=== PATIENT | male | born 1945 | race Caucasian/White ===

== ENCOUNTER 2023-07-10 08:00 | Outpatient (CLI) | payer MEDICARE ==
--- NOTE | 2023-07-10 12:29 | XRAY Report ---
PROCEDURE: Chest 2V INDICATIONS: VIRAL SYMPTOM TECHNIQUE: 2 views of the chest were acquired. COMPARISON: None. FINDINGS: Surgical changes and devices: None. Lungs and pleura: No pleural effusions or pneumothorax. Lungs are clear. Mediastinum: Mediastinal contours appear normal. Heart size is normal. Bones and chest wall: No suspicious bony lesions. Overlying soft tissues appear unremarkable. IMPRESSION: No acute cardiopulmonary process. Reviewed by: Flako Yepez MD on 07/10/2023 12:27 PM [facility] Approved by: Flako Yepez MD on 07/10/2023 12:27 PM [facility] Station ID: [id number]
== END 2023-07-10 23:59 | disposition home or self-care (01) ==
LOC: DI.S 08:00
PROVIDERS: ATTEND Emergency Medicine
DX: B34.9 Viral infection, unspecified (principal)